=== PATIENT | female | born 1955 | race Caucasian/White ===

== ENCOUNTER → 2016-09-19 | Outpatient (CLI) | payer OTHER | LOC: BMCIMAGING 09:29 | PROVIDERS: ATTEND Internal Medicine Endocrinology, Diabetes & Metabolism | DX: E04.2 Nontoxic multinodular goiter (principal) | CPT/HCPCS: 76536-PO ==

== ENCOUNTER 2017-06-05 07:30 | Observation (INO) | payer OTHER ==
[2017-06-05] MEDS ORDERED: ALBUTEROL HFA ANES ONLY 200 PUFFS/8.5 GM MDI IH PRN (15:19)
[2017-06-05] MEDS ORDERED: diphenhydrAMINE 25 MG CAP PO PRN (15:19)
[2017-06-05] MEDS ORDERED: ACETAMINOPHEN 325 MG TAB PO PRN (15:22)
[2017-06-05] MEDS ORDERED: ONDANSETRON DISINTEGRATING 4 MG TAB PO PRN (15:22)
[2017-06-05] MEDS ORDERED: ONDANSETRON 4 MG/2 ML VIAL IVP PRN (15:22)
[2017-06-05] MEDS ORDERED: NS 1,000 ML IV SCH (15:30)
[2017-06-05] MEDS ORDERED: PEG 3350/NA SULF,BICARB,CL/KCL (GAVILYTE-G) 4000 ML BTL PO ONE (15:35)
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
[2017-06-05] MEDS: PANTOPRAZOLE SODIUM 40 MG VIAL IVP SCH (17:45)
--- NOTE | 2017-06-05 21:22 | CPEKG ---
Heart Rate: 81 RR Interval: 741 P-R Interval: 192 QRSD Interval: 78 QT Interval: 368 QTC Interval: 428 P [place]: 30 QRS [place]: 59 T Wave [place]: 34 EKG Severity - NORMAL ECG - EKG Impression: SINUS RHYTHM Electronically Signed By: Alex Cadet 06-Jun-2017 18:42:50
[2017-06-05] MEDS ORDERED: ALBUTEROL 60 PUFFS/8 GM MDI IH PRN (21:30)
[2017-06-05] MEDS: FLUTICASONE HFA 110 MCG MDI IH SCH (21:35)
[2017-06-06 02:01] LABS: % IMMATURE GRANULYOCYTES 0.2 % (0.0-1.1); ABSOLUTE IMMATURE GRANULOCYTES 0.01 10^3/uL (0.00-0.10); ADD DIFF? NO; ADD MORPH? YES; ADD SCAN? NO; ATYPICAL LYMPHOCYTE FLAG 0 (0-99); HEMATOCRIT 24.6 % (38.0-47.0); LEFT SHIFT FLG 0 (0-99); LIPEMIA HEMOLYSIS FLAG 70 (0-99); MEAN CELL HEMOGLOBIN 18.8 pg (27.9-34.1); MEAN PLATELET VOLUME 10.5 fL (8.7-11.7); PLATELET CLUMPS FLAG 0 (0-99); PLATELET COUNT 429 10^3/uL (150-400); RED BLOOD CELL COUNT 3.61 10^6/uL (4.18-5.33)
[2017-06-06 02:03] LABS: FRAGMENT RBC FLAG 110 (0-99); HEMOGLOBIN 6.8 g/dL (12.6-16.3); MEAN CELL HEMOGLOBIN CONCENTR. 27.6 g/dL (32.4-36.7); MEAN CELL VOLUME 68.1 fL (81.5-99.8)
[2017-06-06 03:23] LABS: HYPOCHROMIA 1+; MACROCYTES 1+; MICROCYTES 3+; PLATELET ESTIMATE ADEQUATE (ADEQ)
[2017-06-06 05:12] LABS: % IMMATURE GRANULYOCYTES 0.2 % (0.0-1.1); ABSOLUTE IMMATURE GRANULOCYTES 0.01 10^3/uL (0.00-0.10); ADD DIFF? NO; ADD MORPH? YES; ADD SCAN? NO; ATYPICAL LYMPHOCYTE FLAG 20 (0-99); FRAGMENT RBC FLAG 40 (0-99); HEMATOCRIT 25.9 % (38.0-47.0); HEMOGLOBIN 7.3 g/dL (12.6-16.3); LEFT SHIFT FLG 0 (0-99); LIPEMIA HEMOLYSIS FLAG 70 (0-99); MEAN CELL HEMOGLOBIN 19.5 pg (27.9-34.1); MEAN CELL HEMOGLOBIN CONCENTR. 28.2 g/dL (32.4-36.7); MEAN CELL VOLUME 69.3 fL (81.5-99.8); PLATELET CLUMPS FLAG 10 (0-99); PLATELET COUNT 366 10^3/uL (150-400); RED BLOOD CELL COUNT 3.74 10^6/uL (4.18-5.33); RED CELL DISTRIBUTION WIDTH 20.3 % (11.5-15.2)
[2017-06-06 05:24] LABS: ANION GAP 9 mEq/L (8-16); CARBON DIOXIDE 28 mEq/l (22-31); CHLORIDE 105 mEq/L (97-110); CREATININE 0.7 mg/dL (0.6-1.0); GLOMERULAR FILTRATION RATE > 60; GLUCOSE 95 mg/dL (70-100); POTASSIUM 4.2 mEq/L (3.5-5.2); SODIUM 142 mEq/L (134-144)
[2017-06-06 05:37] LABS: HYPOCHROMIA 3+; MICROCYTES 2+; PLATELET ESTIMATE ADEQUATE (ADEQ); POLYCHROMASIA 1+
[2017-06-06] MEDS ORDERED: LR 1,000 ML IV ONE (06:43)
--- NOTE | 2017-06-06 07:17 | PDANEPAE ---
ANE History of Present Illness anemia ANE Past Medical History - Pulmonary History Hx Asthma/Reactive Airway Disease: Yes Hx Oxygen in Use at Home: No Hx Sleep Apnea: No Sleep Apnea Screening Result - Last Documented: Negative - Endocrine History Hx Diabetes: No - GI History GERD: moderate - Chronic Pain History Chronic Pain: No ANE Review of Systems Review of Systems: ANE Patient History - Allergies Allergies/Adverse Reactions: CALAMINE LOTION Allergy (Uncoded 03/04/11 11:10) - Home Medications Home Medications: Albuterol Hfa Anes Only [Proair Hfa Icu (*)] 2 puffs IH QID PRN 06/05/17 [Last Taken 2 Days Ago ~06/03/17] Fluticasone Hfa 110 Mcg [Flovent 110 MCG Hfa MDI (*)] 1 puffs IH BID 06/05/17 [ Last Taken 06/05/17 09:00] RX: Herbals/Supplements -Info Only 1 ea PO DAILY 06/05/17 [Last Taken 06/05/17] RX: Omeprazole 40 mg PO DAILY PRN 06/05/17 [Last Taken 06/05/17] diphenhydrAMINE [Benadryl 25 MG (*)] 25 mg PO HS PRN 06/05/17 [Last Taken 3 Days Ago ~06/02/17] - NPO status NPO Since - Liquids (Date): 06/06/17 NPO Since - Liquids (Time): 00:00 NPO Since - Solids (Date): 06/06/17 NPO Since - Solids (Time): 00:00 - Smoking Hx Smoking Status: Former smoker ANE Labs/Vital Signs - Labs Result Diagrams: 06/06/17 04:32 06/06/17 04:32 - Vital Signs Blood Pressure: 128/71 Heart Rate: 74 Respiratory Rate: 16 O2 Sat (%): 92 Height: 172.72 cm Weight: 102.512 kg ANE Physical Exam - Airway Neck exam: FROM Mallampati Score: Class 2 Mouth exam: normal dental/mouth exam - Pulmonary Pulmonary: no respiratory distress - Cardiovascular Cardiovascular: regular rate and rhythym - ASA Status ASA Status: III ANE Anesthesia Plan Total IV Anesthesia: Yes
[2017-06-06] MEDS ORDERED: PROPOFOL/EMULSION 500 MG/50 ML BOTTLE IV ONE (07:28)
[2017-06-06] MEDS ORDERED: ONDANSETRON 4 MG/2 ML VIAL IVP PRN (07:46)
[2017-06-06] MEDS ORDERED: fentaNYL 100 MCG/2 ML INJ IVP PRN (07:46)
[2017-06-06] MEDS ORDERED: PROMETHAZINE HCL 25 MG/ML INJ IVP PRN (07:46)
[2017-06-06] MEDS ORDERED: NALOXONE HCL 0.4 MG/ML INJ IVP PRN (07:46)
[2017-06-06] MEDS ORDERED: ALBUTEROL 3 ML DEYVIAL IH PRN (07:46)
--- NOTE | 2017-06-06 07:52 | POSTOPPROG ---
Post Op Note Date of Operation: 06/06/17 Surgeon: Baljit West Anesthesia: IV Sedation Pre-op Diagnosis: Microcytic anemia Post-op Diagnosis: same Procedure: EGD/CLN Findings: No abnormalities. Inf/Abcess present in the surg proc area at time of surgery?: No Specimen(s): Duodenum to r/o Celiac disease.
--- NOTE | 2017-06-06 07:55 | SOAPPROG ---
SOAP Progress Note Assessment/Plan: Assessment:No findings on panendoscopy to explain JOSSELIN. Biopsies taken to r/o Celiac. She is on chronic acid suppressants which can cause malabsorption. If no findings would close GI workup with outpatient small bowel capsule endoscopy. Transfusions and iron supplementation as per Hospitalist team. Plan: 06/06/17 07:54 Objective: Vital Signs Temp Pulse Resp BP Pulse Ox 36.6 C 74 16 128/71 H 92 06/06/17 06:48 06/06/17 07:17 06/06/17 07:17 06/06/17 07:17 06/06/17 07:17 Laboratory Results 06/06/17 04:32 06/06/17 04:32 06/05/17 06/06/17 06/07/17 05:59 05:59 05:59 Output Total 1600 Balance -1600 ICD10 Worksheet Patient Problems: Problems Problem Status Onset Iron deficiency anemia Acute Iron deficiency anemia Acute - ICD10 Problem Qualifiers (1) Iron deficiency anemia (2) Iron deficiency anemia
--- NOTE | 2017-06-06 08:00 | GIREPORT ---
[facility] Surgical Services - Endoscopy Department Patient Name: Kalpana Valle Procedure Date: 06/06/2017 7:27 AM Patient Type: Inpatient Attending MD/ ER Physician: Baljit West MD Procedure: Upper GI endoscopy Indications: Iron deficiency anemia Providers: Baljit West MD Medicines: General Anesthesia Complications: No immediate complications. Description of Procedure: After obtaining informed consent, the endoscope was passed under direct vision. Throughout the procedure, the patient's blood pressure, pulse, and oxygen saturations were monitored continuously. The Endoscope was intro duced through the mouth, and advanced to the third part of duodenum. The uppe r GI endoscopy was accomplished with ease. The patient tolerated the procedu re well. Findings: The esophagus was normal. The stomach was normal. The examined duodenum was normal. Biopsies for histology were taken wit h a cold forceps for evaluation of celiac disease. Verification of patient identification for the specimen was done. Estimated Blood Loss: Estimated blood loss: none. Post Op Diagnosis: - Normal esophagus. - Normal stomach. - Normal examined duodenum. - No specimens collected. Recommendation: - Await pathology results. If no findings, proceed to small bowel PillC am. Attending Participation: I personally performed the entire procedure. Baljit West MD Baljit West MD 06/06/2017 7:59:46 AM This report has been signed electronicallyRobert MD Jenna Number of Addenda: 0 Note Initiated On: 06/06/2017 7:27 AM Total Procedure Duration Time 0 hours 2 minutes 34 seconds [email or web address]
--- NOTE | 2017-06-06 08:01 | POSTANESTH ---
Post Anesthetic Evaluation Cardiovascular Status: Normal, Stable Respiratory Status: Normal, Stable Level of Consciousness/Mental Status: Can Participate in Eval Pain Control: Adequate, Prn Tx Ordered Nausea/Vomiting Control: Adequate, Prn Tx Ordered Complications Possibly Related to Anesthesia: None Noted
--- NOTE | 2017-06-06 08:02 | GIREPORT ---
[facility] Surgical Services - Endoscopy Department Patient Name: Kalpana Valle Procedure Date: 06/06/2017 7:37 AM Patient Type: Inpatient Attending MD/ ER Physician: Baljit West MD Procedure: Colonoscopy Indications: Iron deficiency anemia Providers: Baljit West MD Medicines: General Anesthesia Complications: No immediate complications. Description of Procedure: After obtaining informed consent, the scope was passed under direct vis ion. Throughout the procedure, the patient's blood pressure, pulse, and oxyg en saturations were monitored continuously. The Colonoscope with irrigatio n channel was introduced through the anus and advanced to the cecum, identified by appendiceal orifice and ileocecal valve. The colonoscopy was performed with ease. The patient tolerated the procedure well. The qual ity of the bowel preparation was excellent. Findings: The entire examined colon appeared normal on direct and retroflexion vi ews. Estimated Blood Loss: Estimated blood loss: none. Post Op Diagnosis: - The entire examined colon is normal on direct and retroflexion views. - No specimens collected. Recommendation: - [facility]. - Resume regular diet. - Continue present medications. Attending Participation: I personally performed the entire procedure. Baljit West MD Baljit West MD 06/06/2017 8:01:42 AM This report has been signed electronicallyRobert MD Jenan Number of Addenda: 0 Note Initiated On: 06/06/2017 7:37 AM Total Procedure Duration Time 0 hours 8 minutes 42 seconds [email or web address]
[2017-06-06] MEDS: FLUTICASONE HFA 110 MCG MDI IH SCH (09:15)
[2017-06-06] MEDS: PANTOPRAZOLE SODIUM 40 MG VIAL IVP SCH (09:22)
--- NOTE | 2017-06-06 09:47 | ASMTCMCOM ---
CM Note CM Note Notes: Patient admitted for iron deficiency anemia. She was taken to endoscopy lab for colonoscopy and EGD yesterday; both studies were unremarkable. She is being worked up for Celiac's disease. Patient lives alone independently. No therapies have been ordered, so I anticipate she will discharge independently with no needs. CM available if anything arises. Date Signed: 06/06/2017 09:46 AM Electronically Signed By:Salma Sullivan RN
--- NOTE | 2017-06-06 11:12 | PDDCSUM ---
Discharge Summary Discharge Summary: Dates of service 06/05-06/06/17 Consultations: GI Procedures performed: EGD, colonoscopy Hospital course by problem: # iron deficiency anemia: new fairly profound JOSSELIN discovered at OP visit, taken for EGD/colonoscopy without clear etiology, biopsies taken and pending. No e/o ongoing bleeding so will f/u as an OP for capsule endoscopy. # pulmonary htn: followed at [facility], will continue as planned Dispo: wi home f/u with GI for capsule endoscopy, PCP, [facility] > 35 min spent in dc more than half in face to face counseling of patient
[2017-06-06 12:13] VITALS: BP 113/61; PULSE 79; RESP 18; TEMP 98.2; O2SAT 92
[2017-06-06 14:22] LABS: HEMATOCRIT 31.2 % (38.0-47.0); HEMOGLOBIN 9.4 g/dL (12.6-16.3)
--- NOTE | 2017-06-06 16:27 | ASDISCHSUM ---
Discharge Information Plan Status:Home with No Needs Medically Cleared to Leave: Discharge Date:06/06/2017 04:14 PM CM D/C Disposition:Home, Routine, Self-Care ADT D/C Disposition:Home, Routine, Self-Care Projected Discharge Date:06/06/2017 04:14 PM Transportation at D/C: Discharge Delay Reason: Follow-Up Date:06/06/2017 04:14 PM Discharge Slot: Final Diagnosis: Placement Information Patient Contact Information Contact Name:MICHELE Relationship:Coleman Address: City: [facility] Phone: [facility]Healthcare Interactive Code: Email: Financial Information Financial Class:HMO and PPO Plans Primary Plan Desc:[facility] Primary Plan Number:[id number] Secondary Plan Desc: Secondary Plan Number: Assessment Information [facility] CM Progress Note CM Note CM Note Notes: Patient admitted for iron deficiency anemia. She was taken to endoscopy lab for colonoscopy and EGD yesterday; both studies were unremarkable. She is being worked up for Celiac's disease. Patient lives alone independently. No therapies have been ordered, so I anticipate she will discharge independently with no needs. CM available if anything arises. Date Signed: 06/06/2017 09:46 AM Electronically Signed By:Salma Sullivan RN Intervention Information Intervention Type:*Incorrect Registration Date of Service:06/05/2017 12:24 PM Patient Type:Observation Staff Member:BRYSON Nelson Susan Hours: Discipline: Severity: Comment:
== END 2017-06-06 16:14 | disposition home or self-care (01) ==
LOC: INTOOBSV 14:20 → F3E 14:20
PROVIDERS: ADMIT Internal Medicine; ATTEND Internal Medicine
PROC: 0DJD8ZZ Inspection of Lower Intestinal Tract, Via Natural or Artificial Opening Endoscopic (ICD-10-PCS; principal; 2017-06-06 07:30)
PROC: 0DJ08ZZ Inspection of Upper Intestinal Tract, Via Natural or Artificial Opening Endoscopic (ICD-10-PCS; principal; 2017-06-06 07:30)
PROC: 0DB98ZX Excision of Duodenum, Via Natural or Artificial Opening Endoscopic, Diagnostic (ICD-10-PCS; principal; 2017-06-06 07:30)
PROC: 30233N1 Transfusion of Nonautologous Red Blood Cells into Peripheral Vein, Percutaneous Approach (ICD-10-PCS; 2017-06-06 07:30)
DX: D50.9 Iron deficiency anemia, unspecified (principal); I27.21 Secondary pulmonary arterial hypertension; K44.9 Diaphragmatic hernia without obstruction or gangrene; K21.9 Gastro-esophageal reflux disease without esophagitis; E66.09 Other obesity due to excess calories; Z68.34 Body mass index [BMI] 34.0-34.9, adult; Z96.641 Presence of right artificial hip joint; Z87.891 Personal history of nicotine dependence
CPT/HCPCS: 36430; 43239; 45378; 93005; G0378; P9016; J2704

== ENCOUNTER → 2017-07-12 | Outpatient (CLI) | payer OTHER | LOC: FIMAGING 08:14 | PROVIDERS: ATTEND Family Medicine | DX: Z12.31 Encounter for screening mammogram for malignant neoplasm of breast (principal); Z80.3 Family history of malignant neoplasm of breast | CPT/HCPCS: G0202 ==

== ENCOUNTER → 2017-08-07 | Outpatient (CLI) | payer OTHER | LOC: FIMAGING 12:08 | PROVIDERS: ATTEND Family Medicine | DX: N60.01 Solitary cyst of right breast (principal) ==

== ENCOUNTER 2017-09-16 10:33 | Emergency (ER) | payer OTHER ==
[2017-09-16 10:47] VITALS: PULSE 73
--- NOTE | 2017-09-16 12:33 | EDPHY ---
H & P Time Seen by Provider: 09/16/17 12:05 HPI/ROS: CHIEF COMPLAINT: Room spinning sensation HISTORY OF PRESENT ILLNESS: 62-year-old female presents with a room spinning sensation. She was sitting at her desk at work when she suddenly moved her head to the left. Immediate onset of a spinning sensation. She closed her eyes and the sensation resolved within 3 min. She now has a vague discomfort over her left eye. No severe headache or recent URI. No recent head or neck trauma. She has ongoing left-sided neck stiffness over the last several days. REVIEW OF SYSTEMS: Constitutional: No fever, no chills Eyes: No diplopia ENT: No sore throat Respiratory: No cough, no shortness of breath Cardiac: No chest pain Gastrointestinal: No nausea, no vomiting, no abdominal pain Genitourinary: No hematuria, no dysuria Musculoskeletal: No leg pain or swelling Skin: No rash Neurological: no numbness, no weakness Psychiatric: No depression Past Medical/Surgical History: Pulmonary hypertension Social History: Smoking Status: Former smoker Physical Exam: General Appearance: Alert, pleasant Eyes: Pupils equal and round, no conjunctival pallor or injection, EOMI, no nystagmus ENT, Mouth: Mucous membranes moist Neck: Normal inspection Respiratory: Lungs are clear to auscultation Cardiovascular: Regular rate and rhythm Gastrointestinal: Abdomen is soft and nontender Neurological: Alert, oriented x3, cranial nerves II through XII intact, motor 5 /5, sensory intact to light touch, normal gait Skin: Warm and dry, no rash Extremities: Nontender, no pedal edema Psychiatric: Mood and affect normal Constitutional: Initial Vital Signs Temperature (C) 36.5 C 09/16/17 10:43 Heart Rate 73 09/16/17 10:43 Respiratory Rate 16 09/16/17 10:43 Blood Pressure 140/85 H 09/16/17 10:43 O2 Sat (%) 96 09/16/17 10:43 O2 Delivery Mode Room Air Allergies/Adverse Reactions: CALAMINE LOTION Allergy (Unknown, Uncoded 09/16/17 10:42) Home Medications: Medication Instructions Recorded Albuterol Hfa Anes Only [Proair 2 puffs IH QID PRN 06/05/17 Hfa Icu (*)] Medical Decision Making ED Course/Re-evaluation: This patient presents after a transient episode of vertigo, c/w peripheral etiology of vertigo. She has a normal neurologic exam and there are no concerning signs or symptoms suggestive of a central etiology of vertigo. Symptoms have completely resolved. Has a vague left periorbital discomfort; normal eye exam and no sx that are concerning for acute ICH/SAH. Further eval, including CT/MRI brain, considered, but not indicated in this pt. I feel that she is safe and stable for discharge home. Differential Diagnosis: Differential diagnosis includes TIA, stroke, intracranial hemorrhage, tumor, electrolyte abnormality and acute labyrinthitis. Departure - Departure Disposition: Home, Routine, Self-Care Clinical Impression: Vertigo Condition: Good Instructions: Vertigo (ED) Additional Instructions: Avoid sudden head movements. If the vertigo returns and is persistent, you may try meclizine. Meclizine is an hlfu-oox-uqzqjht medication use for vertigo. Return for worsening symptoms or any concerns. Referrals: Fernanda Cool MD [Primary Care Provider] - As per Instructions
[2017-09-16 12:47] VITALS: BP 159/93; RESP 15; TEMP 98.2; O2SAT 94
== END 2017-09-16 12:47 | disposition home or self-care (01) ==
DX: R42 Dizziness and giddiness (principal); Z87.891 Personal history of nicotine dependence

== ENCOUNTER → 2018-08-06 | Outpatient (CLI) | payer OTHER | LOC: FIMAGING 14:34 | PROVIDERS: ATTEND Family Medicine | DX: Z12.31 Encounter for screening mammogram for malignant neoplasm of breast (principal); Z80.3 Family history of malignant neoplasm of breast ==